=== PATIENT | female | born 2000 | race Caucasian/White ===

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

== ENCOUNTER 2023-02-17 15:19 | Outpatient (REF) | payer MEDICAID, SELFPAY ==
[2023-02-17 21:07] LABS: Abs Immature Grans 0.02 10^3/uL (0.0-0.06); Absolute Basophil Count 0.03 10^3/uL (0.0-0.2); Absolute Eosinophil Count 0.04 10^3/uL (0.0-0.7); Absolute Lymphocyte Count 2.33 10^3/uL (1.2-3.4); Absolute Monocyte Count 0.72 10^3/uL (0.1-0.8); Absolute Neutrophil Count 6.69 10^3/uL (1.2-6.7); Basophils % 0.3; Eosinophils % 0.4; HCT 44.2 % (36.0-46.0); HGB 14.8 g/dL (11.2-15.7); Immature Grans % 0.2; Lymphocytes % 23.7; MCH 28.5 pg (27.0-33.0); MCHC 33.5 % (32.0-36.0); MCV 85 fL (80-95); MPV 10.5 fL (8.0-11.0); Monocytes % 7.3; Neutrophils % 68.1; Platelet Count 307 10^3/uL (130-400); RDW 12.3 % (11.7-14.6); RDW-SD 37.6 fL; WBC 9.83 10^3/uL (4.4-10.8)
[2023-02-17 21:14] LABS: Bilirubin Negative (Negative); Blood Negative (Negative); Clarity Clear (Clear); Glucose Negative (Negative); Ketones Negative (Negative); Leukocyte Esterase Negative (Negative); Nitrite Negative (Negative); Specific Gravity 1.015 (1.005-1.025); pH 7.5 (5-8)
[2023-02-17 21:20] LABS: ALT 23 U/L (14-59); AST 15 U/L (15-37); Albumin 3.7 g/dL (3.4-5.0); Alkaline Phosphatase 101 U/L (46-116); Anion Gap 10.4 mmol/L (3-11); BUN 8 mg/dL (7-18); Bilirubin, Total 0.4 mg/dL (0.2-1.0); CO2 26.6 mmol/L (21.0-32.0); Calcium 9.5 mg/dL (8.5-10.1); Chloride 105 mmol/L (98-107); Estimated GFR 82.71 (mL/min/1.73m2); Glucose 92 mg/dL (74-106); Potassium 3.8 mmol/L (3.5-5.1); Sodium 142 mmol/L (136-145)
== END 2023-02-17 15:20 | disposition home or self-care (01) ==
LOC: LBN 15:19
PROVIDERS: PCP Nurse Practitioner Family; Visit Provider Nurse Practitioner Family
DX: R10.9 Unspecified abdominal pain (principal); R39.9 Unspecified symptoms and signs involving the genitourinary system
CPT/HCPCS: 80053; 81003; 85025

== ENCOUNTER 2023-02-23 22:10 | Outpatient (REF) | payer MEDICAID, SELFPAY ==
[2023-02-25 13:36] LABS: Chlamydia Result Negative (Negative); GC Result Negative (Negative)
== END 2023-02-23 22:11 | disposition home or self-care (01) ==
LOC: LBN 22:10
PROVIDERS: PCP Nurse Practitioner Family; Visit Provider Nurse Practitioner Family
DX: R10.2 Pelvic and perineal pain (principal)
CPT/HCPCS: 87491; 87591

== ENCOUNTER 2023-02-25 02:06 | Outpatient (CLI) | payer MEDICAID, SELFPAY ==
--- NOTE | 2023-02-25 07:30 | DI.US_ITS ---
Exam(s) US ABD PELV TRANSVAG NON-OB EXAM: US ABD PELV TRANSVAG NON-OB CLINICAL HISTORY: abd pain,? ovarian cyst or other pathology TECHNIQUE: Ultrasound abdomen performed using standard protocol. COMPARISON: No exams were available for comparison FINDINGS: ABDOMEN ABDOMINAL AORTA AND IVC: Visualized portions normal caliber. PANCREAS: There is a mildly echogenic round 1.0 x 1.2 cm area in the tail of the pancreas. LIVER: Normal. Hepatopedal flow in the Portal Vein. GALLBLADDER:No evidence of cholelithiasis. No evidence of wall thickening. No pericholecystic fluid i dentified. BILIARY SYSTEM: Common bile duct measures < 7 mm. No intrahepatic biliary ductal dilation. CASTRO'S SIGN: Negative. KIDNEYS: Kidneys are symmetric in size. No evidence of renal calculi. No evidence of hydronephrosis. No renal mass or cyst identified. SPLEEN: Not enlarged. ASCITES: None seen. Bladder:Normal. Ureteral jets: Right: Visualized and unremarkable. Left: Visualized and unremarkable. Prevoid vol:78 cc Postvoid vol:0 cc PELVIC: UTERUS: Position: Anteverted. Size: 5.9 long by 2.2 AP by 3.2 transverse cm Endometrium: 0.7 cm. Normal for patient's menstrual status. Myometrium: Unremarkable. Cervix: Unremarkable. OVARIES: Right: 2.7 x 1.7 x 2.1 cm Cyst or mass: No suspicious cystic or solid masses. Left: 2.9 x 1.5 x 1.9 cm Cyst or mass: No suspicious cystic or solid masses. DOPPLER: Color: Symmetric and uniform flow to both ovaries. No hyperemia. CUL-DE-SAC: Free fluid: None. IMPRESSION: 1. Question of 1 x 1.2 cm slightly hyperechoic nodule in the tail of the pancreas. Further evaluatio n with an MRI of the pancreas is recommended. 2. Otherwise unremarkable examination. DATA REPOSITORY:
== END 2023-02-25 02:26 ==
LOC: DI 02:06
PROVIDERS: PCP Nurse Practitioner Family; Visit Provider Nurse Practitioner Family
DX: R93.3 Abnormal findings on diagnostic imaging of other parts of digestive tract (principal)
CPT/HCPCS: 76700; 76830; 76856

== ENCOUNTER 2023-03-02 20:25 | Emergency (ER) | payer MEDICAID, SELFPAY ==
[2023-03-02 20:30] VITALS: BP 147/80; PULSE 90; RESP 16; TEMP 37.1
--- NOTE | 2023-03-02 20:31 | ED.GENADUL_ITS ---
Discharge Plan Discharge Details Chief Complaint: Abd Prob Primary Care Provider: Basil Maciel ED Provider: Provider,Temporary Home Meds and New Rx's Prescriptions: No Action norgestimate-ethinyl estradiol [Dze-Wx-Cgufwmcy] 0.18/0.215/0.25 mg-25 mcg tablet 1 tab PO DAILY Qty: 84 3RF ProAir RespiClick 90 mcg/actuation aerosol powdr breath activated 2 inh inhalation Q6H PRN (Reason: shortness of breath or wheezing) Qty: 3 3RF fluticasone propion-salmeterol [Advair HFA] 115-21 mcg/actuation HFA aerosol inhaler 2 puff inhalation BID Qty: 8 4RF Medical Decision Making I had originally signed up to participate in this patient's care but I did not see her nor participate in her care. HPI General Date/Time Provider Initiated Documentation: 03/02/23 20:26 . Related Data Home Medications Medication Instructions Recorded Confirmed norgestimate 0.18 mg/0.215 mg/0.25 1 tab PO DAILY #84 tabs 09/15/22 03/02/23 mg-ethinyl estradiol 25 mcg tablet (Rjg-El-Mfbpytaq) albuterol sulfate 90 mcg/actuation 2 inh inhalation Q6H PRN shortness 10/23/22 03/02/23 breath activated powder inhaler of breath or wheezing #3 ea (ProAir RespiClick) fluticasone propionate 115 2 puff inhalation BID #8 grams 10/23/22 03/02/23 mcg-salmeterol 21 mcg/actuation HFA inhaler (Advair HFA) Previous Rx's Medication Instructions Recorded norgestimate 0.18 mg/0.215 mg/0.25 1 tab PO DAILY #84 tabs 09/15/22 mg-ethinyl estradiol 25 mcg tablet (Ayx-Ku-Cihbaynw) albuterol sulfate 90 mcg/actuation 2 inh inhalation Q6H PRN shortness 10/23/22 breath activated powder inhaler of breath or wheezing #3 ea (ProAir RespiClick) fluticasone propionate 115 2 puff inhalation BID #8 grams 10/23/22 mcg-salmeterol 21 mcg/actuation HFA inhaler (Advair HFA) Allergies Allergy/AdvReac Type Severity Reaction Status Date / Time No Known Allergies Allergy Verified 03/02/23 20:42 PFSH All Active Problems Contraception management (Acute) Increased body mass index (BMI) (Chronic) MILD - Goal 150-155 Asthma (Chronic) PFTs 08/29/20 Medical History Dyspnea on minimal exertion Morning joint stiffness of hand Oral contraception initial prescription Pediatric body mass index (BMI) of 85th percentile to less than 95th percentile for age (11/20/17) Family History Mother No problems noted. Father No problems noted. Sister No problems noted. Maternal Grandfather Heart disease Hypertension High cholesterol Paternal Grandfather Hypertension High cholesterol Maternal Grandmother No problems noted. Paternal Grandmother Diabetes Social History Smoking/Tobacco Use Status: Never Second Hand Exposure: No Smoking risk assessment performed?: Yes Alcohol Intake: never Drug use: Never Substance use type: does not use Counseling given: No Counseling provided: none Adopted: No Caregiver/Support person: Yes Foster care: No Household members: family Housing: house Communication Needs: None Education Level: college Details: Freshman - secondary education and mathematics Do you need help understanding health information?: Never Pets and animals: Yes (Dog) Sexually active: Yes Do you think of yourself as: straight/heterosexual Current gender identity: female What is your relationship status?: never How often do you talk on the phone with friends or family?: three or more times per week How often do you get together with friends or relatives?: three or more times per week How often do you attend congregation or adventism services?: 1-3 times per year Do you belong to any clubs or organized social groups?: yes Panel score (0-1 are the most socially isolated patients): 2 What type of physical activity do you participate in: weight lifting, resistance training and other Details: softball Duration: 30-45 minutes/day Frequency: 5-6 times per week Lilibeth/Quaker: Alevism Special lilibeth needs: No Seatbelt use: always Helmet use: Yes Helmet use: always Drive intox or ride w/intox screw driver operator: No Water heater temp set <120 deg: Yes Working smoke detector in home: Yes Fire extinguisher in home: Yes Carbon monox detector in home: Yes Firearms in home: Yes Firearms unloaded and locked: Yes Do you feel safe at home: Yes Do you feel safe in your relationship?: Yes Victim of physical abuse: No Victim of emotional abuse: No Victim of sexual abuse: No Would you like helpful sources: No
[2023-03-02 20:45] LABS: Bilirubin Negative (Negative); Blood Negative (Negative); Clarity Clear (Clear); Glucose Negative (Negative); Ketones Negative (Negative); Leukocyte Esterase Negative (Negative); Nitrite Negative (Negative); Specific Gravity >= 1.030 (1.005-1.025); Urobilinogen 0.2 mg/dL (Up to 0.2)
--- NOTE | 2023-03-02 20:45 | DI.CT_ITS ---
Exam(s) CT ABDOMEN PELVIS W EXAM: CT ABDOMEN PELVIS W CLINICAL HISTORY: LUQ abd pain worsening , 1x1 panc nodule on US. TECHNIQUE: Imaging Protocol: Axial computed tomography images with coronal and sagittal reformatted images were created and reviewed CONTRAST MATERIAL: Intravenous: Omnipaque 350 Contrast volume:100 ml Oral: / no COMPARISON: US US ABD PELV TRANSVAG NON-OB from 02/25/2023 FINDINGS: ABDOMEN: Lung Bases: Normal where visualized. Liver: Normal density. No measurable mass. Gallbladder and biliary tract: No radiodense calculus or dilation. Pancreas: Normal density, no abnormal calcifications or inflammatory process. The nodule seen on ul trasound is not visible by CT and may be artifactual on the ultrasound. Spleen: Normal. Kidneys: Normal size, contour and axis. No radiodense stones or obstructive uropathy. No suspicious m asses seen. Adrenal glands: No masses seen. Abdominal Aorta: Abdominal portion non-dilated. Soft tissues: Unremarkable. PELVIS: Bladder: No gross wall thickening. No calculi.No focal mass. Bowel: Large quantity of stool. No obstruction. No bowel wall thickening. Appendix normal. Peritoneal cavity: No ascites, collection or mesenteric inflammatory response. Bones: Unremarkable for age. Reproductive organs: Within normal limits. Lymph nodes: Unremarkable. Impression: Large quantity of stool throughout the colon. No pancreatic nodule or other abnormality is seen. RADIATION DOSE DELIVERED: 909.45mGy.cm Total DLP DATA REPOSITORY: All CT scans at this facility are submitted to the National Radiology Data Registry (NRDR) Dose Index Registry (DIR) with the [employer] (ACR). RADIATION OPTIMIZATION: All CT scans at this facility use at least one of these dose optimization te chniques: automated exposure control; mA and/or kV adjustment per patient size (includes targeted exa ms where dose is matched to clinical indication); or iterative reconstruction.
[2023-03-02] MEDS: MORPHine 4 MG/ML SYR IVP (20:48)
[2023-03-02 20:57] LABS: Abs Immature Grans 0.03 10^3/uL (0.0-0.06); Absolute Basophil Count 0.07 10^3/uL (0.0-0.2); Absolute Eosinophil Count 0.09 10^3/uL (0.0-0.7); Absolute Lymphocyte Count 2.79 10^3/uL (1.2-3.4); Absolute Monocyte Count 0.67 10^3/uL (0.1-0.8); Absolute Neutrophil Count 6.89 10^3/uL (1.2-6.7); Basophils % 0.7; Eosinophils % 0.9; HCT 44.1 % (36.0-46.0); HGB 14.4 g/dL (11.2-15.7); Immature Grans % 0.3; Lymphocytes % 26.5; MCHC 32.7 % (32.0-36.0); MCV 86 fL (80-95); MPV 9.9 fL (8.0-11.0); Monocytes % 6.4; Neutrophils % 65.2; Platelet Count 324 10^3/uL (130-400); RBC 5.15 10^6/uL (3.93-5.22); RDW 12.1 % (11.7-14.6); RDW-SD 38.1 fL; WBC 10.54 10^3/uL (4.4-10.8)
[2023-03-02 21:12] LABS: ALT 23 U/L (14-59); AST 15 U/L (15-37); Albumin 4.2 g/dL (3.4-5.0); Alkaline Phosphatase 113 U/L (46-116); BUN 12 mg/dL (7-18); Bilirubin, Total 0.4 mg/dL (0.2-1.0); CREATININE 1.1 mg/dL (0.55-1.02); Chloride 104 mmol/L (98-107); Estimated GFR 73.77 (mL/min/1.73m2); Glucose 101 mg/dL (74-106); Lipase 32 U/L (16-77); Potassium 3.6 mmol/L (3.5-5.1); Sodium 140 mmol/L (136-145); Total Protein 8.2 g/dL (6.4-8.2)
[2023-03-02] MEDS: Normal Saline Flush 10 ML SYR IVP (21:20)
[2023-03-02] MEDS: Omnipaque 350 MG/ML 100 ML BTL IJ (21:21)
[2023-03-02] MEDS: Normal Saline - Diluent 50 ML VIAL IJ (21:21)
--- NOTE | 2023-03-02 21:49 | DI.VRAD_ITS ---
PROCEDURE INFORMATION: Exam: CT Abdomen And Pelvis With Contrast Exam date and time: 03/02/2023 9:12 PM Age: 22 years old Clinical indication: Other: Luq abd pain worsening, 1x1 panc nodule on US TECHNIQUE: Imaging protocol: Computed tomography of the abdomen and pelvis with contrast. Radiation optimization: All CT scans at this facility use at least one of these dose optimization techniques: automated exposure control; mA and/or kV adjustment per patient size (includes targeted exams where dose is matched to clinical indication); or iterative reconstruction. Contrast material: OMNIPAQUE 350; Contrast volume: 100 ml; Contrast route: INTRAVENOUS (IV); COMPARISON: US ABD PELV TRANSVAG NON-OB 02/25/2023 12:22 PM FINDINGS: Liver: Normal. No mass. Gallbladder and bile ducts: Normal. No calcified stones. No ductal dilation. Pancreas: Normal. No ductal dilation. Pancreatic nodule described on abdomen ultrasound from 02/25/[address] CT. Spleen: Normal. No splenomegaly. Adrenal glands: Normal. No mass. Kidneys and ureters: Normal. No hydronephrosis. Stomach and bowel: Unremarkable. No obstruction. No mucosal thickening. Appendix: No evidence of appendicitis. Intraperitoneal space: Unremarkable. No free air. No significant fluid collection. Vasculature: Unremarkable. No abdominal aortic aneurysm. Lymph nodes: Unremarkable. No enlarged lymph nodes. Urinary bladder: Unremarkable as visualized. Reproductive: Unremarkable as visualized. Bones/joints: Unremarkable. No acute fracture. Soft tissues: Unremarkable. IMPRESSION: No acute findings. No pancreatic abnormality evident by CT. Dictated and Authenticated by: Maximus Conde MD. Ordering:MARION Roe MD
--- NOTE | 2023-03-02 21:59 | ED.GENADUL_ITS ---
Discharge Plan Disposition Patient Disposition: Home Discharge Details Clinical Impression: Obstipation Primary Care Provider: Basil Maciel ED Provider: Bhupinder Doyle Home Meds and New Rx's Prescriptions: Continued norgestimate-ethinyl estradiol [Xfp-Ek-Dkfpcoqv] 0.18/0.215/0.25 mg-25 mcg tablet 1 tab PO DAILY Qty: 84 3RF ProAir RespiClick 90 mcg/actuation aerosol powdr breath activated 2 inh inhalation Q6H PRN (Reason: shortness of breath or wheezing) Qty: 3 3RF fluticasone propion-salmeterol [Advair HFA] 115-21 mcg/actuation HFA aerosol inhaler 2 puff inhalation BID Qty: 8 4RF Discharge Instructions Instructions: Abdominal Pain (ED), Obstipation (ED) Medical Decision Making Worsening left upper left lower quadrant crampy abdominal pain. No fever no nausea vomiting no diarrhea. No previous history of gastrointestinal pathology. Pain has been present for 2 weeks. Saw her primary care doctor who did an ultrasound of the abdomen and pelvis and there was a questionable one by one nodule in the tail of the pancreas. Clinically no real focal abdominal tenderness. Will obtain CT abdomen and pelvis to evaluate this pancreatic mass send basic labs including lipase and reassess. HPI General Date/Time Provider Initiated Documentation: 03/02/23 20:26 . HPI Narrative: Patient with no significant medical history now presents with 2 weeks of intermittent left-sided crampy abdominal pain. Recently seen by her primary who provided an ultrasound of the abdomen and pelvis. Questionable small mass at the tail of the pancreas. MRI abdomen ordered as follow-up. Patient reports heavier menses her last cycle. No nausea vomiting diarrhea fevers or urinary problems. States that the abdominal pain is crampy and intermittent and mostly on the left side upper and lower. No previous episode of abdominal pain such as this. No history of constipation food intolerance issues or significant acid reflux etc. Related Data Home Medications Medication Instructions Recorded Confirmed norgestimate 0.18 mg/0.215 mg/0.25 1 tab PO DAILY #84 tabs 09/15/22 03/02/23 mg-ethinyl estradiol 25 mcg tablet (Rfe-As-Suksdpli) albuterol sulfate 90 mcg/actuation 2 inh inhalation Q6H PRN shortness 10/23/22 03/02/23 breath activated powder inhaler of breath or wheezing #3 ea (ProAir RespiClick) fluticasone propionate 115 2 puff inhalation BID #8 grams 10/23/22 03/02/23 mcg-salmeterol 21 mcg/actuation HFA inhaler (Advair HFA) Previous Rx's Medication Instructions Recorded norgestimate 0.18 mg/0.215 mg/0.25 1 tab PO DAILY #84 tabs 09/15/22 mg-ethinyl estradiol 25 mcg tablet (Tdb-Yy-Hrkapnnl) albuterol sulfate 90 mcg/actuation 2 inh inhalation Q6H PRN shortness 10/23/22 breath activated powder inhaler of breath or wheezing #3 ea (ProAir RespiClick) fluticasone propionate 115 2 puff inhalation BID #8 grams 10/23/22 mcg-salmeterol 21 mcg/actuation HFA inhaler (Advair HFA) Allergies Allergy/AdvReac Type Severity Reaction Status Date / Time No Known Allergies Allergy Verified 03/02/23 20:42 General Stated Complaint: Abd Prob KELSY: 3 Review of Systems Narrative: CONST: Negative for fever, body aches and chills. HENT: Negative for neck pain/stiffness, headache, congestion, sore throat, swel ling. EYES: Negative for discharge/pain or vision changes. RESP: Negative for cough/hemoptysis and shortness of breath. CV: Negative chest pain, difficulty breathing, palpitations. ABD: Negative pain, nausea, vomiting. : Negative increase frequency, dysuria, blood in urine or stool. Does report heavier menses on her last 2 cycles MUSC: Negative for muscle aches, edema. SKIN: Negative rash, lesions/sores. NEURO: Negative headache, dizziness, weakness. PFSH All Active Problems Obstipation (Acute) Contraception management (Acute) Increased body mass index (BMI) (Chronic) MILD - Goal 150-155 Asthma (Chronic) PFTs 08/29/20 Medical History Dyspnea on minimal exertion Morning joint stiffness of hand Oral contraception initial prescription Pediatric body mass index (BMI) of 85th percentile to less than 95th percentile for age (11/20/17) Family History Mother No problems noted. Father No problems noted. Sister No problems noted. Maternal Grandfather Heart disease Hypertension High cholesterol Paternal Grandfather Hypertension High cholesterol Maternal Grandmother No problems noted. Paternal Grandmother Diabetes Social History Smoking/Tobacco Use Status: Never Second Hand Exposure: No Smoking risk assessment performed?: Yes Alcohol Intake: never Drug use: Never Substance use type: does not use Counseling given: No Counseling provided: none Adopted: No Caregiver/Support person: Yes Foster care: No Household members: family Housing: house Communication Needs: None Education Level: college Details: Freshman - secondary education and mathematics Do you need help understanding health information?: Never Pets and animals: Yes (Dog) Sexually active: Yes Do you think of yourself as: straight/heterosexual Current gender identity: female What is your relationship status?: never How often do you talk on the phone with friends or family?: three or more times per week How often do you get together with friends or relatives?: three or more times per week How often do you attend confucianism or rastafarian services?: 1-3 times per year Do you belong to any clubs or organized social groups?: yes Panel score (0-1 are the most socially isolated patients): 2 What type of physical activity do you participate in: weight lifting, resistance training and other Details: softball Duration: 30-45 minutes/day Frequency: 5-6 times per week Lilibeth/Druze: Nondenominational Special lilibeth needs: No Seatbelt use: always Helmet use: Yes Helmet use: always Drive intox or ride w/intox local delivery driver: No Water heater temp set <120 deg: Yes Working smoke detector in home: Yes Fire extinguisher in home: Yes Carbon monox detector in home: Yes Firearms in home: Yes Firearms unloaded and locked: Yes Do you feel safe at home: Yes Do you feel safe in your relationship?: Yes Victim of physical abuse: No Victim of emotional abuse: No Victim of sexual abuse: No Would you like helpful sources: No Exam Narrative Exam Narrative: GENERAL APPEARANCE NAD, activity normal for age, well developed/ well nourished, no cyanosis, pallor, or diaphoresis. EYES lids/conjunctiva normal. EARS/NOSE/THROAT Mucous membranes moist, HEAD/NECK normocephalic atraumatic, RESPIRATORY respiratory effort normal, speaks in full sentences, no tripod position, no accessory muscle use. CARDIAC Regular rate and rhythm, no edema. ABDOMINAL Soft, nondistended minimal left upper quadrant abdominal tenderness. No rebound no guarding. No evidence of fluid wave. No pulsatile masses on exam, rebound tenderness, Adler sign or pain over Mcburney's point. MUSCLES/EXTREMITIES No abnormal range of motion, no swelling. SKIN Warm, pink and dry. No rashes, dermatoses, petechiae or lesions. NEUROLOGICAL Speech is clear and appropriate. Normal level of consciousness. Gait and coordination are normal. 5/5 strength in all extremities. PSYCH Normal mood and affect. Judgement/competence is appropriate Course Reevaluation(s) Reevaluation: CT scan of the abdomen pelvis reveals no acute intra-abdominal pathology. Previously seen nodule in the pancreas was not visualized on the CT scan. Labs are normal lipase is normal. Abdomen is not acute. Had a discussion with the patient and her family that she is likely stable for outpatient management and discharged her with instructions for limited diet and follow-up with primary care. Vital Signs Vital signs: Vital Signs Temperature 37.1 C 03/02/23 20:30 Pulse 90 03/02/23 20:30 Respiratory Rate 16 03/02/23 20:30 Blood Pressure 147/80 H 03/02/23 20:30 Temperature 37.1 C 03/02/23 20:30 Temperature Source Oral 03/02/23 20:30 Pulse 90 03/02/23 20:30 Respiratory Rate 16 03/02/23 20:30 Respiratory Effort Normal 03/02/23 20:38 Blood Pressure 147/80 H 03/02/23 20:30 Oxygen Delivery Method Room Air 03/02/23 20:30 Oxygen Flow Rate 0 03/02/23 20:30 Pain Level 9 03/02/23 20:30 Lab/Test Results Lab/Test Results: Laboratory Tests Range/Units 03/02/23 03/02/23 03/02/23 20:34 20:50 20:50 WBC (4.4-10.8) 10^3/uL 10.54 RBC (3.93-5.22) 10^6/uL 5.15 Hgb (11.2-15.7) g/dL 14.4 Hct (36.0-46.0) % 44.1 MCV (80-95) fL 86 MCH (27.0-33.0) pg 28.0 MCHC (32.0-36.0) % 32.7 RDW (11.7-14.6) % 12.1 Plt Count (130-400) 10^3/uL 324 MPV (8.0-11.0) fL 9.9 Immature Gran % 0.3 Neutrophils % 65.2 Lymphocytes % 26.5 Monocytes % 6.4 Eosinophils % 0.9 Basophils % 0.7 Nucleated RBC % (0.0-0.3) % 0.0 Absolute Neutrophils (1.2-6.7) 10^3/uL 6.89 H Absolute Lymphocytes (1.2-3.4) 10^3/uL 2.79 Absolute Monocytes (0.1-0.8) 10^3/uL 0.67 Absolute Eosinophils (0.0-0.7) 10^3/uL 0.09 Absolute Basophils (0.0-0.2) 10^3/uL 0.07 Sodium (136-145) mmol/L 140 Potassium (3.5-5.1) mmol/L 3.6 Chloride (98-107) mmol/L 104 Carbon Dioxide (21.0-32.0) mmol/L 26.0 Anion Gap (3-11) mmol/L 10.0 BUN (7-18) mg/dL 12 Creatinine (0.55-1.02) mg/dL 1.1 H Est GFR (CKD-EPI 2020) (mL/min/1.73m2) 73.77 Glucose (74-106) mg/dL 101 Calcium (8.5-10.1) mg/dL 9.0 Total Bilirubin (0.2-1.0) mg/dL 0.4 AST (15-37) U/L 15 ALT (14-59) U/L 23 Alkaline Phosphatase (46-116) U/L 113 Total Protein (6.4-8.2) g/dL 8.2 Albumin (3.4-5.0) g/dL 4.2 Lipase (16-77) U/L 32 Urine Color (Yellow) Yellow Urine Clarity (Clear) Clear Urine pH (5-8) 5.0 Ur Specific [place] (1.005-1.025) >= 1.030 H Urine Protein (Negative) mg/dL Negative Urine Ketones (Negative) mg/dL Negative Urine Blood (Negative) Negative Urine Nitrite (Negative) Negative Urine Bilirubin (Negative) Negative Urine Urobilinogen (Up to 0.2) mg/dL 0.2 Ur Leukocyte Esterase (Negative) Negative Urine Glucose (Negative) mg/dL Negative POC- Test(urine) Negative
[2023-03-02 23:20] VITALS: BP 132/62; PULSE 72; RESP 16; O2SAT 99
== END 2023-03-02 23:19 | disposition home or self-care (01) ==
PROVIDERS: Emergency Medicine; Emergency Provider Emergency Medicine; PCP Nurse Practitioner Family
DX: K59.00 Constipation, unspecified (principal)
CPT/HCPCS: 36415; 80053; 81025; 83690; 96374; 99285; 74177; 81003; 85025; 99284; J2270; J3490

== ENCOUNTER 2024-04-15 13:05 | Outpatient (REF) | payer BC, SELFPAY ==
--- NOTE | 2024-04-15 11:40 | PAPFT_PTH ---
PATIENT: Myles Marte LOC: [facility] U#:[id number] AGE/SX: 23/F ROOM: RE04/15/[address]: Basil Mosher DNP : 2000 BED: DIS: 04/15/2024 SPEC #: [id number] RECD: 04/15/24 13:09 STATUS: THALIA REBob #: [id number] SHAHRZAD: 04/15/24 11:[address]: Shakir Peña RN,Basil DEPT: [facility] Cytology RECD BY: Tiffanie Gaines ENTERED: 04/15/24 13:10 SP TYPE: PAPFT OTHR DR: Basil Mosher DNP Tissues: 1 - CX/ENDOCX FOR PAP SMEARS Procedures: PAP THIN PREP/[facility] Screening Comments: [id number]
== END 2024-04-15 13:06 | disposition home or self-care (01) ==
LOC: LBO 13:05
PROVIDERS: PCP Nurse Practitioner Family; Visit Provider Nurse Practitioner Family
DX: J45.909 Unspecified asthma, uncomplicated (principal); Z00.00 Encounter for general adult medical examination without abnormal findings
CPT/HCPCS: 88142